=== PATIENT | female | born 1960 | race Caucasian/White ===

== ENCOUNTER 2023-01-10 10:31 | Outpatient (REF) | payer BC, SELFPAY ==
[2023-01-10 12:42] LABS: Erythrocyte Sedimentation Rate 5 MM/HR (0-20)
[2023-01-10 12:51] LABS: Alanine Aminotransferase 25 U/L (0-31); Albumin Level 4.9 g/dL (3.5-5.0); Alkaline Phosphatase 62 U/L (39-117); Anion Gap 14 (12-20); Aspartate Amino Transferase 23 U/L (5-31); Bilirubin Direct 0.2 mg/dL (0.0-0.5); Bilirubin Total 0.5 mg/dL (0.0-1.0); Blood Urea Nitrogen 6 mg/dL (9-16); Carbon Dioxide 23 mmol/L (22-29); Chloride 105 mmol/L (96-108); Estimated Glomerular Filt Rate > 60; Glucose Random 97 mg/dL (60-115); Potassium 3.8 mmol/L (3.3-5.1); Sodium 138 mmol/L (135-145); Total Protein 7.8 g/dL (6.5-8.0)
[2023-01-10 13:15] LABS: HIV AB/AG Nonreactive (Nonreactive); HIV Num 1 0.06 S/CO (0.00-0.99)
[2023-01-10 13:16] LABS: Syphilis Screen Nonreactive (Nonreactive)
[2023-01-12 02:04] LABS: Lyme Abs Screen <0.90 index
[2023-01-12 15:13] LABS: Anti Nuclear Antibody Screen NEGATIVE (NEGATIVE)
[2023-01-14 20:38] LABS: IgA 189 mg/dL (47-310); IgG 1221 mg/dL (600-1640); IgM 81 mg/dL (50-300)
== END 2023-01-10 10:32 | disposition home or self-care (01) ==
LOC: HO.LAB 10:31
PROVIDERS: PCP Internal Medicine; Visit Provider Psychiatry & Neurology Neurology
DX: G93.40 Encephalopathy, unspecified (principal)
CPT/HCPCS: 36415; 80048; 80076; 82784; 85652; 86038; 86334; 86617; 86618; 86780; 87389

== ENCOUNTER 2023-01-21 09:10 | Day surgery (SDC) | payer BC, SELFPAY ==
[2023-01-21] VITALS (7 sets, daily range): BP systolic 102–119; BP diastolic 53–75; PULSE 56–69; RESP 12–16; TEMP 37.3–37.4; O2SAT 95–97
--- NOTE | ~2023-01-21 | FL_ITS ---
PROCEDURE: XR LUMBAR PUNCTURE CLINICAL INFORMATION: Encephalopathy. COMPARISON: None available. TECHNIQUE and FINDINGS: Procedure and risks and benefits including bleeding, infection and headache were discussed with the patient and informed consent was obtained. The patient was positioned in the prone position. The lower back was prepped and draped in the usual sterile fashion. The skin and soft tissues were anesthetized with 1% lidocaine plain. Using fluoroscopic guidance and a 22-gauge spinal needle, left-sided interlaminar access to the spinal canal at the L4-L5 level was obtained. Opening pressure was 14.5 cm of water. 8 mL of clear CSF was removed. FLUOROSCOPY TIME: 20 seconds DOSE AREA PRODUCT: 403 uGy-m2 (microgray-meter squared) TOTAL DOSE: 18.34 mGy SAVED FLUOROSCOPIC IMAGE: 1 FL/FL guided lumbar puncture LP IMPRESSION: Fluoroscopy-guided lumbar puncture.
[2023-01-21 10:05] LABS: MANUAL DIFF FLAG NO
[2023-01-21 10:16] LABS: Basophils Absolute Auto 0.1 X10*3/uL (0.0-0.2); Basophils Percent Auto 1.3 % (0-2); Eosinophils Absolute Auto 0.1 X10*3/uL (0.0-0.4); Eosinophils Percent Auto 1.8 % (0-4); Hematocrit 38.5 % (37.0-47.0); Imm Gran Abs Auto 0.02 X10*3/uL (0.00-0.03); Imm Gran Pct Auto 0.3 % (0.0-0.4); Lymphocytes Percent Auto 38.9 % (20-40); Mean Corpuscular HGB Conc 33.8 g/dl (31.0-35.0); Mean Corpuscular Hemoglobin 31.8 pg (27.0-33.0); Mean Corpuscular Volume 94.1 fL (80.0-98.0); Mean Platelet Volume 9.2 fL (9.4-12.3); Monocytes Absolute Auto 0.8 X10*3/uL (0.1-1.2); Monocytes Percent Auto 9.9 % (2-11); Neutrophils Absolute Auto 3.6 x10*3/uL (2.0-8.3); Neutrophils Percent Auto 47.8 % (45-73); Platelet Count 332 X10*3/uL (160-400); Red Blood Count 4.09 X10*6/uL (4.20-5.50); Red Cell Distribution Width 12.9 % (11.0-16.0); White Blood Count 7.6 X10*3/uL (4.8-10.8)
[2023-01-21 10:25] LABS: INTERNATIONAL NORM RATIO 0.9 (0.9-1.1); Prothrombin Time 10.6 SEC (11.1-13.3)
[2023-01-21 10:28] LABS: Partial Thromboplastin Time 32.9 SEC (26.0-36.4)
[2023-01-21 12:52] LABS: CSF Appearance Xanthochromic; CSF Tube # 1
[2023-01-21 13:18] LABS: Appearance CSF CLEAR; CSF Monos 0 %; CSF Other Cells % 0 %; CSF Tube # 4; Color CSF COLORLESS; Glucose CSF 48 mg/dL; Lymphocytes CSF 100 %; Neutrophils CSF 0 %; Red Blood Cell CSF 0 MM*3; White Blood Cell CSF 3 MM*3
[2023-01-21 14:35] LABS: Total Protein CSF 663.6 mg/dL (15-45)
[2023-01-21 21:32] LABS: Oligoclonal Serum Yes
[2023-01-27 15:29] LABS: Albumin 4.7 g/dL (3.6-5.1); IgG 1170 mg/dL (600-1640); IgG Synthesis Rate 41.9 mg/24 h (-9.9-3.3)
[2023-01-29 21:19] LABS: Oligoclonal Banding Absent (Absent)
== END 2023-01-21 13:46 | disposition home or self-care (01) ==
PROVIDERS: Radiology Diagnostic Radiology; PCP Internal Medicine; Visit Provider Psychiatry & Neurology Neurology
PROC: 009U3ZZ Drainage of Spinal Canal, Percutaneous Approach (ICD-10-PCS; CPT 62270; principal; 2023-01-21 11:00)
DX: G93.40 Encephalopathy, unspecified (principal); G11.9 Hereditary ataxia, unspecified; G62.9 Polyneuropathy, unspecified; M47.812 Spondylosis without myelopathy or radiculopathy, cervical region; F10.11 Alcohol abuse, in remission; K50.90 Crohn's disease, unspecified, without complications; Z79.620 Long term (current) use of immunosuppressive biologic; Z79.899 Other long term (current) drug therapy
CPT/HCPCS: 36415; 62328; 82042; 82945; 83916; 84157; 85025; 85610; 85730; 87015; 87070; 87205; 89051

== ENCOUNTER → 2023-01-21 11:36 | Outpatient (BNV) | payer BC, SELFPAY | PROVIDERS: PCP Internal Medicine; Visit Provider Radiology Diagnostic Radiology | DX: G93.40 Encephalopathy, unspecified (principal) | CPT/HCPCS: 62328 ==

== ENCOUNTER 2023-03-28 07:34 | Outpatient (REF) | payer BC, SELFPAY | END 2023-03-28 07:35 | disposition home or self-care (01) | LOC: HO.MDS 07:34 | PROVIDERS: PCP Internal Medicine; Visit Provider Psychiatry & Neurology Neurology | DX: G61.81 Chronic inflammatory demyelinating polyneuritis (principal) | CPT/HCPCS: 96365; 96366; J1561 ==

== ENCOUNTER 2023-03-29 08:06 | Outpatient (REF) | payer BC, SELFPAY | END 2023-03-29 08:07 | disposition home or self-care (01) | LOC: HO.MDS 08:06 | PROVIDERS: Visit Provider Psychiatry & Neurology Neurology | DX: G61.81 Chronic inflammatory demyelinating polyneuritis (principal) | CPT/HCPCS: 96365; 96366; J1561; J1569 ==

== ENCOUNTER 2023-03-30 07:44 | Outpatient (REF) | payer BC, SELFPAY | END 2023-03-30 07:45 | disposition home or self-care (01) | LOC: HO.MDS 07:44 | PROVIDERS: Visit Provider Psychiatry & Neurology Neurology | DX: G61.81 Chronic inflammatory demyelinating polyneuritis (principal) | CPT/HCPCS: 96365; 96366; J1561 ==

== ENCOUNTER 2023-03-31 07:39 | Outpatient (REF) | payer BC, SELFPAY | END 2023-03-31 07:40 | disposition home or self-care (01) | LOC: HO.MDS 07:39 | PROVIDERS: Visit Provider Psychiatry & Neurology Neurology | DX: G61.81 Chronic inflammatory demyelinating polyneuritis (principal) | CPT/HCPCS: 96365; 96366; J1561 ==

== ENCOUNTER 2023-04-01 07:37 | Outpatient (REF) | payer BC, SELFPAY | END 2023-04-01 07:38 | disposition home or self-care (01) | LOC: HO.MDS 07:37 | PROVIDERS: Visit Provider Psychiatry & Neurology Neurology | DX: G61.81 Chronic inflammatory demyelinating polyneuritis (principal) | CPT/HCPCS: 96365; 96366; J1561 ==

== ENCOUNTER 2023-05-23 08:13 | Outpatient (REF) | payer BC, SELFPAY | END 2023-05-23 08:14 | disposition home or self-care (01) | LOC: HO.MDS 08:13 | PROVIDERS: Visit Provider Psychiatry & Neurology Neurology | DX: G61.81 Chronic inflammatory demyelinating polyneuritis (principal) | CPT/HCPCS: 96365; 96366; J1561 ==

== ENCOUNTER 2023-05-24 07:42 | Outpatient (REF) | payer BC, SELFPAY | END 2023-05-24 07:43 | disposition home or self-care (01) | LOC: HO.MDS 07:42 | PROVIDERS: Visit Provider Psychiatry & Neurology Neurology | DX: G61.81 Chronic inflammatory demyelinating polyneuritis (principal) | CPT/HCPCS: 96365; 96366; J1561 ==

== ENCOUNTER 2023-05-25 07:52 | Outpatient (REF) | payer BC, SELFPAY | END 2023-05-25 07:53 | disposition home or self-care (01) | LOC: HO.MDS 07:52 | PROVIDERS: Visit Provider Psychiatry & Neurology Neurology | DX: G61.81 Chronic inflammatory demyelinating polyneuritis (principal) | CPT/HCPCS: 96365; 96366; J1561 ==

== ENCOUNTER 2023-05-26 07:39 | Outpatient (REF) | payer BC, SELFPAY | END 2023-05-26 07:40 | disposition home or self-care (01) | LOC: HO.MDS 07:39 | PROVIDERS: Visit Provider Psychiatry & Neurology Neurology | DX: G61.81 Chronic inflammatory demyelinating polyneuritis (principal) | CPT/HCPCS: 96365; 96366; J1561 ==

== ENCOUNTER 2023-05-27 07:40 | Outpatient (REF) | payer BC, SELFPAY | END 2023-05-27 07:41 | disposition home or self-care (01) | LOC: HO.MDS 07:40 | PROVIDERS: Visit Provider Psychiatry & Neurology Neurology | DX: G61.81 Chronic inflammatory demyelinating polyneuritis (principal) | CPT/HCPCS: 96365; 96366; J1561 ==

== ENCOUNTER 2024-08-21 07:17 | Outpatient (REF) | payer BC, SELFPAY ==
--- OUTSIDE RECORDS SUMMARY | 2024-08-21 07:20 | XMS_ITS | Referral Summary ---
Author Organization [facility] Address [address] [place] [address] Care Team Providers Care Commercial Stripper Name Role Phone [place] MD, Abel Benavides Primary Care Provider [phone]- [phone] Allergies Active Allergy Reactions Criticality Noted Date Comments Pollen Extracts Nasal congestion Medium 01/17/2017 Medications betamethasone, augmented, (DIPROLENE) 0.05% cream APPLY TOPICALLY TO THE AFFECTED AREA THREE TIMES DAILY NEEDED INSTRUCTED 4 Active ciclopirox (PENLAC) 8 % solution SMARTSIG:Topica l 4 Active hydrocortisone- acetic acid (VOSOL-HC) otic solution SMARTSI Drop(s) In Ear(s) Daily 4 Active predniSONE (DELTASONE) 5 mg tablet SMARTSI Tablet(s) By Mouth Daily 4 Active simvastatin (ZOCOR) 20 mg tablet Take 1 tablet by mouth at bed time. 4 Active tacrolimus (PROTOPIC) 0.03% ointment SMARTSIG:Topica l Twice Daily 4 Active vitamin B complex capsule Take 1 capsule by mouth once a day. Active ascorbic acid (VITAMIN C) 500 mg tablet Take 500 mg by mouth once a day. Active multivitamin (THERAGRAN) tablet Take 1 tablet by mouth once a day. Active cholecalciferol , vitamin D3, (VITAMIN D3 ORAL) Take by mouth. Activ e Active Problems No known active problems Social History Tobacco Use Types Packs/Day Years Used Date Smoking Tobacco: Every Day Cigarettes Passive Smoke Exposure: Current Smokeless Tobacco: Never Tobacco Cessation:Ready to Q uit: Not Asked; Counseling Given: Not Answered Passive Exposure Comments:1 pack per day Alcohol Use Standard Drinks/Week Comments Not Currently 0 (1 standard drink = 0.6 oz pur e alcohol) Sex and Gender Information Value Date Recorded Sex Assigned at Male 07/13/2023 9:13 AM EDT Legal Sex Male 9:11 AM EDT Gender Identity Not on file Sexual Orientation Not on file Last Filed Vital Signs Vital Sign Reading Time Taken Comments Blood Pressure 147/67 11/10/2023 1:10 PM EDT Pulse 82 11/10/2023 1:10 PM EDT Temperature 36.4 ??C (97.5 ??F) 11/10/2023 1:10 PM ED T Respiratory Rate 18 11/10/2023 1:10 PM EDT Oxygen Saturation - - Inhaled Oxygen Concentration - - Weight 82.6 kg (182 lb) 11/10/2023 1:10 PM EDT Height - - Body Mass Index - - Plan of Treatment Not on file Insurance BCBS OUT OF STATE PPO Care Teams Commercial Stripper Relationship Specialty Start Date End Date Abel Callahan III, MD PCP - General Internal Medicine 07/13/23
--- OUTSIDE RECORDS SUMMARY | 2024-08-21 07:20 | XMS_ITS | Clinical Summary ---
Author Organization [facility] Address [address] [place] [address] Care Team Providers Care Scientific Specialist Name Role Phone [place] MD, Abel Benavides Primary Care Provider [phone]- [phone] Allergies Active Allergy Reactions Criticality Noted Date [...] e Active Problems No known active problems Family History Medical History Relation Name Comments Heart disease Father Hyperlipidemia Father Stroke Father Aneurysm Maternal Grandfather Cirrhosis Mother Diabetes type II Mother Relation Name Status Comments Brother Alive Father Maternal Grandfather Maternal Grandmother Mother Paternal Grandfather Paternal Grandmother Social History Tobacco Use Types Packs/Day Years [...] Mass Index - - Plan of Treatment Health Maintenance Due Date Last Done Comments Cologuard 1962 Colon Cancer Screening 1962 Colonoscopy 1962 FOBT / Fit Test 1962 HIV Screening 1962 Hepatitis C Screening 1962 Sigmoidoscopy 1962 Pneumococcal Vaccine: 50+ Years (1 of 2 - PCV) 1981 CT Lung Cancer Screening (Baseline) 02/03/2012 Zoster Vaccines (1 of 2) 02/03/2012 DTaP,Tdap,and Td Vaccines (2 - Td or Tdap) 05/01/2022 05/01/2012 COVID-19 Vaccine ( - season) 2023 03/06/2021, 07/22/2020, 07/01/2020 Alcohol/Substance Use Screening 04/11/2024 Depression Screening and Follow-Up 04/11/2024 Social Drivers of Health Annual Screening 04/11/2024 Influenza Vaccine (Season Ended) 2024 01/29/2023, 01/18/2022, 01/26/2021, Additional history exists RSV Vaccine (60+ years old and patients) (1 - 1-dose 75+ series) 2037 Hepatitis B Vaccines Aged Out No long er eligible based on patient's age to complete this topic Insurance BCBS OUT OF STATE PPO Care Teams Scientific Specialist Relationship Specialty Start Date End Date Abel Callahan III, MD PCP - General Internal Medicine 07/13/23
--- OUTSIDE RECORDS SUMMARY | 2024-08-21 07:20 | XMS_ITS | Clinical Summary ---
Author Organization Patient Business Ser [facility] Address [address] [place] [address] Care Team Providers Care Grape Picker Name Role Phone Abel Callahan MD Primary Care Provider [phone] Allergies No known active allergies Medications ascorbic acid (VITAMIN C) 500 mg chewable tablet Chew 1 tablet (500 mg total). Active cetirizine (ZyrTEC) 10 mg tablet Take 1 tablet (10 mg total) by mouth 1 (one) time each day. 4 Active ciclopirox (LOPROX) 0.77 % gel Apply between 4th and 5th toe left foot once daily x 2 weeks 3 Active docosahexaenoic acid-epa 120-180 mg capsule Take by mouth. Acti ve ergocalciferol (VITAMIN D-2) 1,250 mcg (50,000 unit) capsule Take by mouth. A ctive betamethasone, augmented, (DIPROLENE-AF) 0.05 % cream APPLY TOPICALLY TO THE AFFECTED AREA THREE TIMES DAILY NEEDED INSTRUCTED 4 Active predniSONE (DELTASONE) 20 mg tablet 4 Active betamethasone dipropionate (DIPROSONE) 0.05 % cream APPLY TOPICALLY TO THE AFFECTED AREA THREE TIMES DAILY NEEDED INSTRUCTED 4 Active Banophen 25 mg capsule TAKE 1 CAPSULE BY MOUTH EVERY DAY NEEDED FOR ITCHING 4 Active folic acid (FOLVITE) 1 mg tablet Take 1 tablet (1,000 mcg total) by mouth 1 (one) time each day. 3 Active acetic acid-hydrocortiso ne (VOSOL-HC) otic solution INSTILL 5 DROPS INTO BOTH EARS EVERY DAY DIRECTED 4 Active mesalamine (LIALDA) 1.2 gram EC tablet Take 3 tablets (3.6 g total) by mouth. 4 09/05/19 25 Active oxyCODONE (ROXICODONE) 5 mg immediate release tablet Take 1 tablet (5 mg total) by mouth every 6 (six) hours if needed. for moderate pain 4 Active thiamine 100 mg tablet Take 1 tablet (100 mg total) by mouth 1 (one) time each day. 3 Active tiZANidine (ZANAFLEX) 4 mg tablet Take 1 tablet (4 mg total) by mouth. 4 Active azaTHIOprine (IMURAN) 50 mg tablet Take 1 tablet (50 mg total) by mouth 1 (one) time each day. Active fluticasone propionate (FLONASE) 50 mcg/actuation nasal spray Administer 2 sprays into each nostril 1 (one) time each day. Shake gently. Before first use, prime pump. After use, clean tip and replace cap. 16 g 5 5 04/27/19 26 Active simvastatin (ZOCOR) 20 mg tablet TAKE 1 TABLET(20 MG) BY MOUTH AT BEDTIME 90 tablet 1 5 Active Active Problems Problem Noted Date Diagnosed Date Prediabetes 10/26/2023 Hx of actinic keratosis 05/27/2023 Diabetes mellitus screening 05/27/2023 Tinea pedis, left 01/11/2022 Ruptured tympanic membrane, right 04/28/2021 Overview (05/27/2023): Evaluated by ENT 09/16/20: TM healed and audiometric testing showed resolution of conductive hearing loss. Abnormal MRI, lumbar spine 09/09/2020 Overview (05/27/2023): MRI of the lumbar spine 05/2019: fatty signal intensity within the bone marrow of the sacrum as well as degenerative disc disease. Patient did follow-up with hematology, Dr. Gray on 05-30-19 where reassurance was provided and that appear that the fatty signal was indeed benign and that the back pain undoubtably relates to the multiple disc abnormalities. No further work-up was recommended. Anemia 06/11/2019 Cervical radiculopathy 01/03/2018 Lumbar disc disease with radiculopathy 7 Hypercholesterolemia 05/27/2014 Crohn's colitis ([facility] V24, [facility] V28) 02/10 Overview (05/27/2023): Symptomatic onset approximately April,. Colonoscopy and biopsies 01.19.06. Relative sparing of ascending colon. Terminal ileum normal. biopsies consistent with idiopathic IBD, more likely ulcerative colitis, moderate-severe activity, no dysplasia. CN 02/01/2014: looked like Crohns distal to SF. Biopsies negative for dysplasia, showed ulceration and inflammation. Did not show granulomas. Start [facility] 03/14/2014. Overview: Symptomatic onset approximately April,. Colonoscopy and biopsies 06. Relative sparing of ascending colon. Terminal ileum normal. biopsies consistent with idiopathic IBD, more likely ulcerative colitis, moderate-severe activity, no dysplasia. CN 02/01/2014: looked like Crohns distal to SF. Biopsies negative for dysplasia, showed ulceration and inflammation. Did not show granulomas. Start [facility] 03/14/2014. Encounters Date Type Department Care Team Description 06/25/2024 8:55 AM EDT - 06/25/2024 11:59 PM EDT Hospital Encounter [facility] Xray [address] [place] [id number] Dysphagia, unspecified type Discharge Disposition: Home or Self Care 06/08/2024 12:50 PM EST Office Visit Gastroenterology - [place] [address] [facility] [address] [facility] [address] [place] [phone] Gracy Fowler MD Dysphagia, unspecified type (Primary Dx); Crohn's disease of colon without complication ([facility] V24, [facility] V28) from Last 3 Months Immunizations Name Administration Dates Next Due Influenza Quadravalent, MDCK , 0.5ml, preservative free (Flucelvax) 6mo and older 01/03/2018 Influenza Quadravalent, MDCK , 0.5ml, with preservative (Flucelvax) 6mo and older 01/14/2020 Influenza trivalent, 0.5mL, preservative free (Fluarix; FluLaval; Fluzone) ages 6mo and older (Afluria) 3 years and older 02/07/2017,01/09/2015 Influenza trivalent, with pr eservative (Fluzone; Afluria) 6mo and older 01/14/2020,02/10/2016,02/12/2014 PPD Test 05/04/2016,03/13/2015,02/12/2014 Pfizer SARS-CoV-2 COVID-19, mRNA, LNP-S, preservative free 03/06/2021 Tdap Tetanus diptheria acell ular pertussis (Boostrix; Adacel) 7yo and older 05/01/2012 Surgical History Surgery Date Site/Laterality Comments OTHER SURGICAL HISTORY 1968 PROCEDURE: AR EXPL UNDESCENDED TSTIS INGUN/SCROTAL AREA; COMMENT: age 9 COLONOSCOPY 2013 PROCEDURE: HISTORICAL COLONOSCOPY; COMMENT: IBD distal to SF: chronic IBD on histology. OTHER SURGICAL HISTORY 09/18/2016 PROCEDURE: DISKECTOMY LUMBAR ADDTNL SP; COMMENT: [email or web address]. COLONOSCOPY 04/12/2019 PROCEDURE: HISTORICAL COLONOSCOPY; COMMENT: Surveillance examination for dysplasia; no active disease other than a solitary small erosion. Random biopsies: Normal, no dysplasia. Medical History Medical History Date Comments Broad Top ulcerative (chroni c) colitis(556.6) 02/10/2006 DX:Broad [place] ulcerative (chr onic) colitis(556.6) ([facility]) Actinic keratoses 03/21/2009 DX:Actinic ker atoses Crohn's colitis ([facility] V24 , [facility] V28) 02/10/2006 DX:Crohn's colitis (HCC); CO MMENT: Symptomatic onset approximately April,. Colonoscopy and biopsies 01.19.06. Relative sparing of ascending colon. Terminal ileum normal. biopsies consistent with idiopathic IBD, more likely ulcerative colitis, moderate-severe activity, no dysplasia. CN 02/01/2014: looked like Crohns distal to SF. Encounter for PPD test 02/14/2014 DX:Encoun ter for PPD test; COMMENT: PPD negative, 02/14/2014. Hypercholesteremia 05/27/2014 DX:Hyperchole steremia Lumbar disc disease with radiculopathy 09/17/2016 DX:Lumbar disc disease with radiculopathy History of actinic keratoses 03/21/2009 DX: History of actinic keratoses; COMMENT: Left helix - biopsy 03/19 -- If recurs needs second biopsy Family History Medical History Relation Name Comments Celiac disease Father Heart attack Father Breast cancer Mother Cirrhosis Mother dx with cirrhos is and liver cancer at age 83. Hypertension Mother Colon cancer Neg Hx Crohn's disease Neg Hx Ulcerative colitis Neg Hx Relation Name Status Comments Father (Age 86) Mother (Age 83) 2014 Social History Tobacco Use Types Packs/Day Years Used Date Smoking Tobacco: Every Day Cigarettes 1 42.5 Started: 1982 Smokeless Tobacco: Never Tobacco Cessation:Ready to Q uit: Not Asked; Counseling Given: Not Answered Alcohol Use Standard Drinks/Week Comments Yes 0 (1 standard drink = 0.6 oz pur e alcohol) Sex and Gender Information Value Date Recorded Sex Assigned at Not on file Legal Sex Male 8:29 PM EDT Gender Identity Not on file Sexual Orientation Not on file Obstetrics History Last Filed Vital Signs Vital Sign Reading Time Taken Comments Blood Pressure 125/64 06/08/2024 12:36 PM EST Pulse 87 06/08/2024 12:36 PM EST Temperature 36.6 ??C (97.8 ??F) 04/27/2024 8:03 AM ES T Respiratory Rate 16 04/27/2024 8:03 AM EST Oxygen Saturation 97% 06/08/2024 12:36 PM EST Inhaled Oxygen Concentration - - Weight 89.4 kg (197 lb) 06/08/2024 12:36 PM EST Height 175.3 cm (5' 9 ) 06/08/2024 12:36 PM EST Body Mass Index 29.09 06/08/2024 12:36 PM EST Plan of Treatment Upcoming Encounters Date Type Department Care Team (Late st Contact Info) Description 11/02/2024 9:30 AM EDT Office Visit Adult Medicine [address] [phone] Abel Callahan MD [address] [place] [id number] Health Maintenance Due Date Last Done Comments Hepatitis A Vaccines (1 of 2 - Risk 2-dose series) 1981 Pneumococcal Vaccine: 50+ Years (1 of 2 - PCV) 1981 Pneumococcal Vaccine: Pediatrics (0 to 5 Years) and At-Risk Patients (6 to 64 Years) (1 of 2 - PCV) 1981 Zoster Vaccines (1 of 2) 1981 Depression Screening 08/17/2020 HIV Screening 08/17/2020 Lung Cancer Screening (Low Dose CT) 08/17/2020 Social Influencers of Health Screening 08/17/2020 RSV Immunization Adult Patients (1 - Risk 60-74 years 1-dose series) 2022 DTaP,Tdap,and Td Vaccines (2 - Td or Tdap) 05/01/2022 05/01/2012 COVID-19 Vaccine ( season) 2023 03/06/2021, 07/22/2020, 07/01/2020 Colorectal Cancer Screening: Colonoscopy 08/23/2025 08/24/2023, 04/12/2019 Cholesterol Screening (Lipid Panel) 04/27/2029 04/27/2024, 10/26/2023, 10/26/2023, Additional history exists Hepatitis C Screening Completed 04/01/2016, 016 Influenza Vaccine Completed 03/29/2024, , 01/18/2022, Additional history exists HIB Vaccines Aged Out No longer eligi ble based on patient's age to complete this topic HPV Vaccines Aged Out No longer eligi ble based on patient's age to complete this topic Hepatitis B Vaccines Aged Out No long er eligible based on patient's age to complete this topic IPV Vaccines Aged Out No longer eligi ble based on patient's age to complete this topic MMR Vaccines Aged Out No longer eligi ble based on patient's age to complete this topic Meningococcal ACWY Vaccine Aged Out N o longer eligible based on patient's age to complete this topic Meningococcal B Vaccine Aged Out No l onger eligible based on patient's age to complete this topic RSV Immunization Patients Under 20 months Aged Out No longer eligible based on patient's age to complete this topic Varicella Vaccines Aged Out No longer eligible based on patient's age to complete this topic Procedures Procedure Name Priority Date/Time Associated Diagnosis Comments XR ESOPHAGRAM Routine 06/25/2024 9:28 AM EDT Dysphagia, unspecified type CBC WITH AUTO DIFFERENTIAL Routine 06/08/2024 2:02 PM EST Crohn's disease of colon without complication (CMS/HCC V24, CMS/HCC V28) CBC AND DIFFERENTIAL Routine 06/08/2024 2:02 PM EST Crohn's disease of colon without complication (CMS/HCC V24, CMS/HCC V28) C-REACTIVE PROTEIN Routine 06/08/2024 2: 02 PM EST Crohn's disease of colon without complication (CMS/HCC V24, CMS/HCC V28) LIPID PANEL WITH REFLEX TO DIRECT LDL Routine 04/27/2024 8:47 AM EST Hypercholesterolemia HM COLONOSCOPY Routine 08/24/2023 HEPATITIS C SCREENING Routine 04/01/2016 from Last 3 Months or Most Recently Relevant to Health Maintenance Results * XR Esophagram (06/25/2024 9:28 AM EDT) Anatomical Region Laterality Modality Head and Neck Radiographic Marisol ging 06/25/2024 10:4 1 AM EDT Impressions 06/25/2024 11:01 AM EDT 1. Flash laryngeal penetration with small amounts of silent aspiration noted on rapid sequence swallowing of thin barium with minimal residual in the vallecula and piriform sinuses. 2. Moderate esophageal dysmotility. 3. Small amounts of spontaneous gastroesophageal reflux visualized. -------- FINAL REPORT -------- Dictated By: Farzana Woods Dictated Date: 06/25/2024 10:41 ET Assigned Physician: Talon Kim Reviewed and Electronically Signed By: Talon Kim Signed Date: 06/25/2024 11:01 ET Workstation ID: [id number] Transcribed By: Self Edit Transcribed Date: 06/25/2024 10:53 ET Resident/PA/RIVETER: Farzana Woods Narrative 06/25/2024 11:01 AM EDT FINDINGS: Double contrast esophagram performed. COMPARISON: No prior esophagram imaging HISTORY: Patient is a 64-year-old male with history of dysphagia. Senior Front End Engineer radiographs: 1 view chest radiograph demonstrates cardiac and mediastinal contours within normal limits. Lungs are clear bilaterally. Costophrenic angles are sharp. There are moderate to severe bony degenerative changes of the thoracolumbar spine. 1 view lateral soft tissue neck demonstrates no prevertebral soft tissue masses. Airway is widely patent. There is surgical fusion hardware noted at the level of C3-5. Nuchal ligament is calcified. Effervescent crystals were administered orally. Thick and thin barium were administered orally under fluoroscopic control. Pharyngoesophagram: Rapid sequence imaging of the hypopharynx during swallowing demonstrates prompt initiation of swallowing. There is normal soft palate elevation. There is flash laryngeal penetration with small amounts of silent aspiration noted. There is minimal residual in the vallecula and in the piriform sinuses. Thoracic esophagus: There is moderate esophageal dysmotility as demonstrated by slow transit of contrast down the esophagus and visualized tertiary contractions. Normal distensibility and mucosal pattern without evidence of ulceration, stricture or mass formation. Hiatal hernia: None Reflux: Small amounts of spontaneous gastroesophageal reflux visualized 13mm Barium pill: Swallowed without difficulty. Prompt passage of pill from the esophagus into the stomach. DAP: 8.37 Gycm^2 Procedure Note Talon Kim MD - 06/25/2024 FINDINGS: Double contrast esophagram performed. COMPARISON: No prior esophagram imaging HISTORY: Patient is a 64-year-old male with history of dysphagia. Senior Front End Engineer radiographs: 1 view chest radiograph demonstrates cardiac andmediastinal contours within normal limits. Lungs are clear bilaterally.Costophrenic angles are sharp. There are moderate to severe bonydegenerative changes of the thoracolumbar spine. 1 view lateral softtissue neck demonstrates no prevertebral soft tissue masses. Airway iswidely patent. There is surgical fusion hardware noted at the level ofC3-5. Nuchal ligament is calcified. Effervescent crystals were administered orally. Thick and thin barium wereadministered orally under fluoroscopic control. Pharyngoesophagram: Rapid sequence imaging of the hypopharynx duringswallowing demonstrates prompt initiation of swallowing. There is normalsoft palate elevation. There is flash laryngeal penetration with smallamounts of silent aspiration noted. There is minimal residual in thevallecula and in the piriform sinuses. Thoracic esophagus: There is moderate esophageal dysmotility asdemonstrated by slow transit of contrast down the esophagus and visualizedtertiary contractions. Normal distensibility and mucosal pattern withoutevidence of ulceration, stricture or mass formation. Hiatal hernia: None Reflux: Small amounts of spontaneous gastroesophageal reflux visualized 13mm Barium pill: Swallowed without difficulty. Prompt passage of pillfrom the esophagus into the stomach. DAP: 8.37 Gycm^2 IMPRESSION: 1. Flash laryngeal penetration with small amounts of silent aspirationnoted on rapid sequence swallowing of thin barium with minimal residual inthe vallecula and piriform sinuses. 2. Moderate esophageal dysmotility. 3. Small amounts of spontaneous gastroesophageal reflux visualized. -------- FINAL REPORT -------- Dictated By: Farzana Woods Dictated Date: 06/25/2024 10:41 ET Assigned Physician: Talon Kim Reviewed and Electronically Signed By: Talon Kim Signed Date: 06/25/2024 11:01 ET Workstation ID: [id number] Transcribed By: Self Edit Transcribed Date: 06/25/2024 10:53 ET Resident/PA/RIVETER: Farzana Woods Gracy Fowler MD IMG FLUOROSCOPY PROCEDURES Final Result * (ABNORMAL) CBC auto differential (06/08/2024 2:02 PM EST) WBC 7.9 4.8 - 10.8 K/[facility] LAB HEMETOLOGY METHOD 06/08/2024 2:53 PM EST [facility] RBC 4.20(L) 4.50 - 5.50 M/[facility] LAB HEMETOLOGY METHOD 06/08/2024 2:53 PM EST [facility] Hemoglobin 12.9(L) 13.5 - 17.5 g/dL LAB HEMETOLOGY METHOD 06/08/2024 2:53 PM [facility] Hematocrit 37.9(L) 42.0 - 54.0 % LAB HEMETOLOGY METHOD 06/08/2024 2:53 PM [facility] MCV 90.9 79.0 - 98.0 FL LAB HEMETOLOGY METHOD 06/08/2024 2:53 PM [facility] MCH 30.9 27.0 - 32.0 pcg LAB HEMETOLOGY METHOD 06/08/2024 2:53 PM [facility] MCHC 34.0 32.0 - 37.0 g/dL LAB HEMETOLOGY METHOD 06/08/2024 2:53 PM [facility] RDW 14.0 11.0 - 15.0 % LAB HEMETOLOGY METHOD 06/08/2024 2:53 PM [facility] Platelets 383 130 - 400 K/mcL LAB HEMETOLOGY METHOD 06/08/2024 2:53 PM [facility] MPV 9.9 7.0 - 11.0 FL LAB HEMETOLOGY METHOD 06/08/2024 2:53 PM [facility] NRBC 0.0 <1.0 % LAB HEMETOLOGY METHOD 06/08/2024 2:53 PM [facility] NRBC Absolute 0.00 <0.10 K/mcL LAB HEMETOLOGY METHOD 06/08/2024 2:53 PM [facility] Neutrophils Relative 52.6 % LAB HEMETOLOGY METHOD 06/08/2024 2:53 PM [facility] Lymphocytes Relative 30.2 % LAB HEMETOLOGY METHOD 06/08/2024 2:53 PM [facility] Monocytes Relative 11.7 % LAB HEMETOLOGY METHOD 06/08/2024 2:53 PM [facility] Eosinophils Relative 3.7 % LAB HEMETOLOGY METHOD 06/08/2024 2:53 PM EST [facility] Basophils Relative 1.5 % LAB HEMETOLOGY METHOD 06/08/2024 2:53 PM [facility] Immature Granulocytes Relative 0.3 % LAB HEMETOLOGY METHOD 06/08/2024 2:53 PM EST [facility] Neutrophils Absolute 4.14 1.50 - 7.00 K/mcL LAB HEMETOLOGY METHOD 06/08/2024 2:53 PM EST [facility] Lymphocytes Absolute 2.38 1.00 - 5.00 K/mcL LAB HEMETOLOGY METHOD 06/08/2024 2:53 PM [facility] Monocytes Absolute 0.92 0.20 - 1.00 K/mcL LAB HEMETOLOGY METHOD 06/08/2024 2:53 PM EST [facility] Eosinophils Absolute 0.29 0.00 - 0.50 K/mcL LAB HEMETOLOGY METHOD 06/08/2024 2:53 PM EST [facility] Basophils Absolute 0.12 0.00 - 0.20 K/mcL LAB HEMETOLOGY METHOD 06/08/2024 2:53 PM EST [facility] Immature Granulocytes Absolute 0.02 0.00 - 0.03 K/mcL LAB HEMETOLOGY METHOD 06/08/2024 2:53 PM EST [facility] Blood Venous blood specimen / Unknown Venipuncture / Unknown 06/08/2024 2:02 PM EST 06/08/2024 2:33 PM EST us Gracy Fowler MD LAB BLOOD ORDERABLES Final Result [facility] [address] [place] [address], * C-reactive protein (06/08/2024 2:02 PM EST) [facility] C-Reactive Protein <0.29 <=0.50 mg/dL LAB CHEMISTRY METHOD 06/08/2024 4:09 PM EST [facility] Blood Venous blood specimen / Unknown Venipuncture / Unknown 06/08/2024 2:02 PM EST 06/08/2024 2:33 PM EST us Gracy Fowler MD LAB BLOOD ORDERABLES Final Result [facility] [address] [place] [address], [place] [phone] * (ABNORMAL) Lipid panel with reflex to direct LDL (04/27/2024 8:47 AM EST) [facility] Cholesterol 192 0 - 200 mg/dL LAB CHEMISTRY METHOD 04/27/2024 1:59 PM [facility] Triglycerides 235(H) 0 - 150 mg/dL LAB CHEMISTRY METHOD 04/27/2024 1:59 PM [facility] HDL 38(L) >=40 mg/dL LAB CHEMISTRY METHOD 04/27/2024 1:59 PM [facility] LDL Calculated 107(H) 0 - 100 mg/dL LAB CHEMISTRY METHOD 04/27/2024 1:59 PM [facility] VLDL Cholesterol Chapo 47 mg/dL LAB CHEMISTRY METHOD 04/27/2024 1:59 PM [facility] Non HDL Chol. (LDL+VLDL) 154(H) <145 mg/dL LAB CHEMISTRY METHOD 04/27/2024 1:59 PM [facility] Chol/HDL Ratio 5.1(H) 0.0 - 4.4 LAB CHEMISTRY METHOD 04/27/2024 1:59 PM [facility] Blood Venous blood specimen / Unknown Venipuncture / Unknown 04/27/2024 8:47 AM EST 04/27/2024 8:47 AM EST Abel Callahan MD LAB BLOOD ORDERABLES Final Resu lt [facility] [address] [place] [address], * Colonoscopy (08/24/2023) Colonoscopy no interpretation , abstracted Anatomical Region Laterality Modality Other Historical Provider HEALTH MAINTENANCE Final Result * Hepatitis C Screening (04/01/2016) Hepatitis C Screening ABSTRACTED Historical Provider HEALTH MAINTENANCE Final Result from Last 3 Months or Most Recently Relevant to Health Maintenance Insurance [facility] Care Teams Grape Picker Relationship Specialty Start Date End Date Abel Callahan MD [address] [place] [phone] PCP - General 08/11/05
--- OUTSIDE RECORDS SUMMARY | 2024-08-21 07:20 | XMS_ITS ---
Author Name [facility] Organization Unknown Results Test Name/Text Value Interpretation Date Range Source ICD-10 CODES Normal [facility] LAB AP CLINICAL INFORMATION Small round pink/erythematous patches and papules with fine scale scattered on trunk and proximal extremities; dermatitis unspecified vs lichenoid drug eruption vs hypersensitivity vs AD vs ACD vs psoriasis Normal [facility] AP GROSS DESCRIPTION Received in formalin. Dimensions 5 x 4 x 7 mm, bisected, and submitted in 1 cassette. Also received is a vial of tissue transport medium (Patel's) containing a biopsy specimen measuring 5 x 4 x 6 mm. Tissue was washed in phosphate buffered saline and then embedded in OCT for immunofluorescent studies. Tissue was frozen, cut at 5 microns, and stained with fluorescein-labeled antibody to human IgG, IgM, IgA, C3 and fibrinogen. Normal [id number] [facility]
--- OUTSIDE RECORDS SUMMARY | 2024-08-21 07:20 | XMS_ITS | Clinical Summary ---
Author Organization [facility] Address [address] [place] [address] Care Team Providers Care Voice Systems Engineer Name Role Phone Abel Callahan MD Primary Care Provider [phone] Allergies No known active allergies Medications Medication Sig Dispensed Refills Start Date End Date Status Adalimumab (HUMIRA) 40 MG/0.8ML injection Inject 40 mg under the skin every 7 days. 0 Active vitamin C (ASCORBIC ACID) 500 MG tablet Take 500 mg by mouth daily. 0 Active Multiple Vitamin (MULTI-VITAMIN DAILY PO) Take by mouth every other day. 0 Active [place]-3 Fatty Acids (FISH OIL) 1000 MG CAPS Take by mouth. 0 Active simvastatin (ZOCOR) tablet 20 mg Take 20 mg by mouth every night at bedtime. 0 Active Active Problems Problem Noted Date Diagnosed Date Cervical radiculopathy 01/03/2018 Lumbar disc disease with radiculopathy 7 Hypercholesteremia 05/27/2014 Crohn's colitis 02/10/2006 Overview: Overview: Symptomatic onset approximately April,. Colonoscopy and biopsies 01.19.06. Relative sparing of ascending colon. Terminal ileum normal. biopsies consistent with idiopathic IBD, more likely ulcerative colitis, moderate-severe activity, no dysplasia. CN 02/01/2014: looked like Crohns distal to SF. Biopsies negative for dysplasia, showed ulceration and inflammation. Did not show granulomas. Start humira 03/14/2014. Family History Medical History Relation Name Comments Hypertension Father Stroke Father Cancer Mother Hypertension Mother Relation Name Status Comments Father Mother Social History Tobacco Use Types Packs/Day Years Used Date Smoking Tobacco: Every Day Cigarettes 1 38 Started: 1981 Smokeless Tobacco: Never Tobacco Cessation:Counseling Given: No Alcohol Use Standard Drinks/Week Comments Yes 12 (1 standard drink = 0.6 oz pu re alcohol) beer Sex and Gender Information Value Date Recorded Sex Assigned at Not on file Gender Identity Not on file Sexual Orientation Not on file Job Start Date Occupation Industry Not on file Not on file Not on file Last Filed Vital Signs Vital Sign Reading Time Taken Comments Blood Pressure 122/78 05/29/2019 1:12 PM EST Pulse 93 05/29/2019 1:12 PM EST Temperature 36.2 ??C (97.2 ??F) 05/29/2019 1:12 PM ES T Respiratory Rate - - Oxygen Saturation - - Inhaled Oxygen Concentration - - Weight 86.6 kg (191 lb) 05/29/2019 1:12 PM EST Height 175.3 cm (5' 9 ) 05/29/2019 1:12 PM EST Body Mass Index 28.21 05/29/2019 1:12 PM EST Plan of Treatment Health Maintenance Due Date Last Done Comments Hepatitis C Screening 1960 Lung Cancer Screening (Low Dose CT) 1962 COVID-19 Vaccine (#1) 1962 Pneumococcal Vaccine (1 of 2 - PCV) 02/03/1968 Depression Screening 1974 Preventative Health Evaluation 02/03/1980 Colon Cancer Screening (Colonoscopy) 2007 Shingrix-Zoster Vaccine (1 o f 2) 02/03/2012 DTap / Tdap / Td (2 - Td or Tdap) 05/01/2022 05/01/2012 Influenza Vaccine (#1) 2023 8, 02/10/2016, 02/12/2014 RSV Adult > 60+ Yrs or (1 - 1-dose 75+ series) 2037 Hepatitis B Vaccines Aged Out No long er eligible based on patient's age to complete this topic RSV Ped < 20 months Aged Out No longe r eligible based on patient's age to complete this topic Care Teams Voice Systems Engineer Relationship Specialty Start Date End Date Abel Callahan MD PCP - General Internal Medicine 03/31/18
[2024-08-21 07:40] LABS: MANUAL DIFF FLAG NO
[2024-08-21 07:57] LABS: Basophils Absolute Auto 0.1 X10*3/uL (0.0-0.2); Basophils Percent Auto 1.1 % (0-2); Eosinophils Absolute Auto 0.2 X10*3/uL (0.0-0.4); Eosinophils Percent Auto 3.2 % (0-4); Hematocrit 38.4 % (37.0-47.0); Hemoglobin 13.4 g/dl (12.0-16.0); Imm Gran Abs Auto 0.01 X10*3/uL (0.00-0.03); Imm Gran Pct Auto 0.1 % (0.0-0.4); Lymphocytes Absolute Auto 1.6 X10*3/uL (1.2-4.9); Mean Corpuscular HGB Conc 34.9 g/dl (31.0-35.0); Mean Corpuscular Hemoglobin 31.7 pg (27.0-33.0); Mean Corpuscular Volume 90.8 fL (80.0-98.0); Mean Platelet Volume 9.1 fL (9.4-12.3); Monocytes Absolute Auto 0.8 X10*3/uL (0.1-1.2); Monocytes Percent Auto 11.4 % (2-11); Neutrophils Absolute Auto 4.3 x10*3/uL (2.0-8.3); Neutrophils Percent Auto 61.2 % (45-73); Platelet Count 345 X10*3/uL (160-400); Red Blood Count 4.23 X10*6/uL (4.20-5.50); Red Cell Distribution Width 13.7 % (11.0-16.0); White Blood Count 7.1 X10*3/uL (4.8-10.8)
[2024-08-21 08:13] LABS: Alanine Aminotransferase 27 U/L (0-31); Albumin Level 4.5 g/dL (3.5-5.0); Alkaline Phosphatase 79 U/L (39-117); Aspartate Amino Transferase 20 U/L (5-31); Bilirubin Direct 0.1 mg/dL (0.0-0.5); Bilirubin Total 0.3 mg/dL (0.0-1.0); Total Protein 8.1 g/dL (6.5-8.0)
== END 2024-08-21 07:18 | disposition home or self-care (01) ==
LOC: HO.LAB 07:17
PROVIDERS: PCP Internal Medicine; Visit Provider Psychiatry & Neurology Neurology
DX: G61.81 Chronic inflammatory demyelinating polyneuritis (principal)
CPT/HCPCS: 36415; 80076; 85025

== ENCOUNTER 2024-11-26 10:28 | Outpatient (AMB) | payer BC, SELFPAY ==
--- NOTE | 2024-11-26 10:44 | MHC.OFFVIS ---
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 His EMG/NCS revealed signs of severe neuropathy and CSF protein was 665. With diagnosis of CIDP, he was treated with ivIg that started in late Mar 2023. He is walking with a cane. He is still suffering from balance issues. His hips are also hurting. Breathing is ok. Swallowing is ok. Speech is ok. Bladder control is ok. No significant pain. 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 Normal attention. Normal spontaneous speech, fluency, and comprehension. No obvious issues with mood and memory. Affect is appropriate. Cranial Nerves: CN II: Visual morris full to confrontation, visual acuity intact. CN III, IV, : Pupils equal, round, reactive to light and accommodation. Extraocular movements are normal. CN V: Facial sensation is normal. CN VII: Facial movements symmetrical. CN VIII: Hearing intact to bedside conversation is normal. CN IX, X: Palate elevates symmetrically. CN XI: Shoulder shrug and head turn symmetrical. CN XII: Tongue midline without atrophy or fasciculations. Slow and cautious with a cane. Moderately unsteady. Extrapyramidal: Full facial expressions and blinking. No rigidity. Movements are appropriate with no tremor or abnormality. Speech: Normal; no dysarthria or tremor. Assessment & Plan Assessment & Plan (1) CIDP (chronic inflammatory demyelinating polyneuropathy): Comment: LP at [facility] in Jan 2023: OP 14.5cm, WBCs 3, RBCs 0, Pro 663.6, IgG ind: high, OCBs absent Labs at [facility] in 2022: CBC ok, ESR 5, CMP ok, LFTS ok, INR/PT ok, IF ok, Lyme neg, Trep test neg. MRI C spine at [facility] in Dec 2022: C 3/4 and 4/5 mod to severe stenosis but no cord sig abn NCV/EMG LEs in off in Dec 2022: Moderately severe predominately motor somewhat patchy sensory and motor peripheral neuropathy with axonal loss. There is also evidence of right lower lumbar chronic radiculopathy. MRI LS spine at [facility] in October 2022: mod DJD, mod b/l multilevel spondylitic stenosis MRI brain WO at [facility] in October 2022: mod cerebellar atrophy, one R hernandez radiata probably ischemic small lesion. Code(s): G61.81 - Chronic inflammatory demyelinating polyneuritis Category: Medical (2) Cerebellar ataxia: Code(s): G11.9 - Hereditary ataxia, unspecified Category: Medical (3) Multifactorial gait disorder: Code(s): R26.89 - Other abnormalities of gait and mobility Category: Medical Plan Impression: a: CIDP b: Cerebellar degeneration and ataxia c: Crohn's disease, presently stable d: H/O alcohol drinking that might have contributed to cerebellar degeneration Rec: a: Take prednisone 5mg one every other day b: IV Ig 30 g every 3 months Coding Level of Care Code Est Pt Level 5 (24107) Diagnoses CIDP (chronic inflammatory demyelinating polyneuropathy) G61.81 Cerebellar ataxia G11.9 Multifactorial gait disorder R26.89
[2024-11-26 10:54] VITALS: BMI 29.8
--- OUTSIDE RECORDS SUMMARY | 2024-11-26 11:29 | XMS_ITS | Clinical Summary ---
Author Organization [facility] Address [address] [place] [address] Care Team Providers Care Customer Service Receptionist Name Role Phone [place] MD, Abel Benavides Primary Care Provider [phone] Allergies Active Allergy Reactions Criticality Noted Date [...] 82 11/10/2023 1:10 PM EDT Temperature 36.4 C (97.5 F) 11/10/2023 1:10 PM EDT Respiratory Rate 18 11/10/2023 1:10 PM EDT [...] Vaccine ( season) 2023 03/06/2021, 07/22/2020, 07/01/2020 Alcohol/Substance Use Screening 04/11/2024 Depression Screening and Follow-Up 04/11/2024 Social Drivers of Health Annual Screening 04/11/2024 Influenza Vaccine (#1) 2024 , 01/18/2022, 01/26/2021, Additional history exists RSV Vaccine (60+ years old and patients) (1 - 1-dose 75+ series) 2037 Hepatitis B Vaccines Aged Out No long er eligible based on patient's age to complete this topic Insurance BCBS OUT OF STATE PPO Care Teams Customer Service Receptionist Relationship Specialty Start Date End Date Abel Callahan III, MD PCP - General Internal Medicine 07/13/23
--- OUTSIDE RECORDS SUMMARY | 2024-11-26 11:29 | XMS_ITS | Clinical Summary ---
Author Organization [facility] Address [address] [place] [address] Care Team Providers Care Telephone Service Adviser Name Role Phone Abel Callahan MD Primary Care Provider [phone] Allergies No known active allergies Medications Medication Sig Dispensed Refills Start Date End Date Status Adalimumab (HUMIRA) 40 MG/0.8ML injection Inject 40 mg under the skin every 7 days. 0 Active vitamin C (ASCORBIC ACID) 500 MG tablet Take 500 mg by mouth daily. 0 Active Multiple Vitamin (MULTI-VITAMIN DAILY PO) Take by mouth every other day. 0 Active [place]-3 Fatty Acids (FISH OIL) 1000 MG CAPS [...] 93 05/29/2019 1:12 PM EST Temperature 36.2 C (97.2 F) 05/29/2019 1:12 PM EST Respiratory Rate - - Oxygen Saturation - [...] or Tdap) 05/01/2022 05/01/2012 Influenza Vaccine (#1) 2024 8, 02/10/2016, 02/12/2014 RSV Adult > 60+ Yrs or (1 - 1-dose 75+ series) 2037 Hepatitis B Vaccines Aged Out No long er eligible based on patient's age to complete this topic RSV Ped < 20 months Aged Out No longe r eligible based on patient's age to complete this topic Care Teams Telephone Service Adviser Relationship Specialty Start Date End Date Abel Callahan MD PCP - General Internal Medicine 03/31/18
--- OUTSIDE RECORDS SUMMARY | 2024-11-26 11:29 | XMS_ITS ---
Author Name [facility] Organization Unknown Results Test Name/Text Value Interpretation Date Range Source ICD-10 CODES Normal 07/19/2023 [facility] CLINICAL INFORMATION Small round pink/erythematous patches and papules with fine scale scattered on trunk and proximal extremities; dermatitis unspecified vs lichenoid drug eruption vs hypersensitivity vs AD vs ACD vs psoriasis Normal 07/19/2023 [facility] GROSS DESCRIPTION Received [...] IgG, IgM, IgA, C3 and fibrinogen. Normal 07/19/2023 [facility]
--- OUTSIDE RECORDS SUMMARY | 2024-11-26 11:29 | XMS_ITS | Clinical Summary ---
Author Organization Patient Business Ser [facility] Address [address] [place] [address] Care Team Providers Care Spring Former Name Role Phone Abel Callahan MD Primary Care Provider Allergies No known active allergies Medications ascorbic acid (VITAMIN C) 500 mg chewable tablet Chew 1 tablet (500 mg total). Active ciclopirox (LOPROX) 0.77 % gel Apply between 4th and 5th toe left foot once daily x 2 weeks 06/15/19 23 Active docosahexaenoic acid-epa 120-180 mg capsule Take by mouth. Active ergocalciferol (VITAMIN D-2) 1,250 mcg (50,000 unit) capsule Take by mouth. Active betamethasone, augmented, (DIPROLENE-AF) 0.05 % cream APPLY TOPICALLY TO THE AFFECTED AREA THREE TIMES DAILY NEEDED INSTRUCTED 08/17/19 24 Active predniSONE (DELTASONE) 20 mg tablet 04/30/19 24 Active betamethasone dipropionate (DIPROSONE) 0.05 % cream APPLY TOPICALLY TO THE AFFECTED AREA THREE TIMES DAILY NEEDED INSTRUCTED 08/17/19 24 Active Banophen 25 mg capsule TAKE 1 CAPSULE BY MOUTH EVERY DAY NEEDED FOR ITCHING 07/23/19 24 Active folic acid (FOLVITE) 1 mg tablet Take 1 tablet (1,000 mcg total) by mouth 1 (one) time each day. 03/15/20 23 Active acetic acid-hydrocortis one (VOSOL-HC) otic solution INSTILL 5 DROPS INTO BOTH EARS EVERY DAY DIRECTED 02/24/20 24 Active oxyCODONE (ROXICODONE) 5 mg immediate release tablet Take 1 tablet (5 mg total) by mouth every 6 (six) hours if needed. for moderate pain 10/15/19 24 Active thiamine 100 mg tablet Take 1 tablet (100 mg total) by mouth 1 (one) time each day. 03/11/20 23 Active tiZANidine (ZANAFLEX) 4 mg tablet Take 1 tablet (4 mg total) by mouth. 10/15/19 24 Active azaTHIOprine (IMURAN) 50 mg tablet Take 1 tablet (50 mg total) by mouth 1 (one) time each day. Active fluticasone propionate (FLONASE) 50 mcg/actuation nasal spray Administer 2 sprays into each nostril 1 (one) time each day. Shake gently. Before first use, prime pump. After use, clean tip and replace cap. 16 g 5 04/27/19 25 026 Active cetirizine (ZyrTEC) 10 mg tablet TAKE 1 TABLET BY MOUTH EVERY DAY 90 tablet 1 09/21/19 25 Active simvastatin (ZOCOR) 20 mg tablet TAKE 1 TABLET(20 MG) BY MOUTH AT BEDTIME 90 tablet 1 11/13/19 25 Active simvastatin (ZOCOR) 20 mg tablet TAKE 1 TABLET(20 MG) BY MOUTH AT BEDTIME 90 tablet 1 05/21/19 25 025 Discontinued Active Problems Problem Noted Date Diagnosed Date Dysarthria 10/31/2024 Overview (10/31/2024): Follows with neurology, Dr. Michelle Cerebellar ataxia ([facility] V24, [facility] V28) Overview (10/31/2024): Follows with neurology. Uses cane. Peripheral neuropathy 10/31/2024 Overview (10/31/2024): Follows with neurology. Dr. Michelle Prediabetes 10/26/2023 Hx of actinic keratosis 05/27/2023 [...] with radiculopathy 7 Hypercholesterolemia 05/27/2014 Crohn's colitis ([facility] V24, [facility] V28) 02/10 Overview (05/27/2023): Symptomatic onset approximately April,. Colonoscopy and biopsies 10..06. Relative sparing of ascending colon. Terminal ileum normal. biopsies consistent with idiopathic IBD, more likely ulcerative colitis, moderate-severe activity, no dysplasia. CN 02/01/2014: looked like Crohns distal to SF. Biopsies negative for dysplasia, showed ulceration and inflammation. Did not show granulomas. Start [facility] 03/14/2014. Overview: Symptomatic onset approximately April,. Colonoscopy and biopsies 10.11.06. Relative sparing of ascending colon. Terminal ileum normal. biopsies consistent with idiopathic IBD, more likely ulcerative colitis, moderate-severe activity, no dysplasia. CN 02/01/2014: looked like Crohns distal to SF. Biopsies negative for dysplasia, showed ulceration and inflammation. Did not show granulomas. Start [facility] 03/14/2014. Encounters Date Type Department Care Team Description 10/31/2024 10:30 AM EDT Office Visit [address] [address] Gregory, [place], [place] Laceration of left index finger without foreign body, nail damage status unspecified, subsequent encounter (Primary Dx); Dysarthria; Cerebellar ataxia (CMS/HCC V24, CMS/HCC V28); Other polyneuropathy; Pulse irregularity 10/22/2024 Telephone Adult Medicine [id number] [place] [address] Abel Callahan MD Hospital Follow-up from Last 3 Months Immunizations Name Administration [...] ular pertussis (Boostrix; Adacel) 7yo and older 10/19/2024,05/01/2012 Surgical History Surgery Date Site/Laterality Comments OTHER SURGICAL HISTORY 1968 PROCEDURE: LA EXPL UNDESCENDED TSTIS INGUN/SCROTAL AREA; COMMENT: age 9 COLONOSCOPY 2013 PROCEDURE: HISTORICAL COLONOSCOPY; COMMENT: IBD distal to SF: chronic IBD on histology. OTHER SURGICAL HISTORY 09/18/2016 PROCEDURE: DISKECTOMY LUMBAR ADDTNL SP; COM[place]: [email or web address] 04/12/2019 PROCEDURE: HISTORICAL COLONOSCOPY; COMMENT: Surveillance examination for dysplasia; no active disease other than a solitary small erosion. Random biopsies: Normal, no dysplasia. Medical History Medical History Date Comments [place] ulcerative (chroni c) colitis(556.6) 02/10/2006 DX:[place] ulcerative (chr onic) colitis(556.6) ([facility]) Actinic keratoses 03/21/2009 DX:Actinic ker atoses Crohn's colitis (CMS/HCC V24 , CMS/HCC V28) 02/10/2006 DX:Crohn's colitis (HCC); CO MMENT: [...] Date Smoking Tobacco: Every Day Cigarettes 1 42.8 Started: 1982 Smokeless Tobacco: Never Tobacco Cessation:Ready [...] Sign Reading Time Taken Comments Blood Pressure 134/88 10/31/2024 7:59 AM EDT Pulse 61 10/31/2024 7:59 AM EDT Temperature 36.2 C (97.2 F) 10/31/2024 7:59 AM EDT Respiratory Rate 14 10/31/2024 7:59 AM EDT Oxygen Saturation 97% 10/31/2024 7:59 AM EDT Inhaled Oxygen Concentration - - Weight 88.9 kg (196 lb) 10/31/2024 7:59 AM EDT Height 175.3 cm (5' 9 ) 10/31/2024 7:59 AM EDT Body Mass Index 28.94 10/31/2024 7:59 AM EDT Plan of Treatment Upcoming Encounters Date Type Department Care Team (Late st Contact Info) Description 11/29/2024 8:00 AM EDT Ancillary Procedure [facility] [address] [place] [id number] 12/19/2024 1:00 PM EDT Office Visit Adult Medicine [facility] [address] [place] [address] Mario Alberto Holly PA [address] [place] [address] Health Maintenance Due Date Last Done Comments Pneumococcal Vaccine: 50+ Years (1 of 2 - PCV) 1981 Zoster Vaccines (1 of 2) 1981 HIV Screening 08/17/2020 Lung Cancer Screening (Low Dose CT) 08/17/2020 Social Influencers of Health Screening 08/17/2020 RSV Immunization Adult Patients (1 - Risk 60-74 years 1-dose series) 2022 COVID-19 Vaccine ( - season) 2023 03/06/2021, 07/22/2020, 07/01/2020 Depression Screening 04/11/2024 Influenza Vaccine (#1) 2024 , 01/29/2023, 01/18/2022, Additional history exists Colorectal Cancer Screening: Colonoscopy 08/23/2025 08/24/2023, 04/12/2019 Cholesterol Screening (Lipid Panel) 04/27/2029 04/27/2024, 10/26/2023, 10/26/2023, Additional history exists DTaP,Tdap,and Td Vaccines (3 - Td or Tdap) 10/19/2034 10/19/2024, 05/01/2012 Hepatitis C Screening Completed 04/01/2016, 016 HIB Vaccines Aged Out No longer eligi ble based on patient's age to complete this topic HPV Vaccines Aged Out No longer eligi ble based on patient's age to complete this topic Hepatitis A Vaccines Aged Out No long er eligible [...] Procedure Name Priority Date/Time Associated Diagnosis Comments ECG 12-LEAD TRACING ONLY Routine 11/02/2024 8:09 AM EDT Dysarthria Pulse irregularity CBC WITH AUTO DIFFERENTIAL Routine 10/31/2024 9:01 AM EDT Pulse irregularity CBC AND DIFFERENTIAL Routine 10/31/2024 9:01 AM EDT Pulse irregularity COMPREHENSIVE METABOLIC PANEL Routine 10/31/2024 9:01 AM EDT Pulse irregularity MAGNESIUM Routine 10/31/2024 9:01 AM EDT Pulse irregularity THYROID STIMULATING HORMONE WITH REFLEX TO FREE T4 AND FREE T3 Routine 10/31/2024 9:01 AM EDT Pulse irregularity LIPID PANEL WITH REFLEX TO DIRECT LDL Routine 04/27/2024 8:47 AM EST Hypercholesterolemia HM COLONOSCOPY Routine 08/24/2023 HEPATITIS C SCREENING Routine 04/01/2016 from Last 3 Months or Most Recently Relevant to Health Maintenance Results * ECG 12 lead Tracing Only (11/02/2024 8:09 AM EDT) Noemi CLARK ECG ORDERABLES Final Result * Thyroid stimulating hormone with reflex to free t4 and free t3 (10/31/2024 9:01 AM EDT) [facility] TSH 1.46 0.40 - 4.00 mcIU/mL LAB CHEMISTRY METHOD 10/31/2024 2:05 PM EDT [facility] Blood Venous blood specimen / Unknown Venipuncture / Unknown 10/31/2024 9:01 AM EDT 10/31/2024 9:01 AM EDT Noemi CLARK LAB BLOOD ORDERABLES Final Resul t [facility] [address] [place] [address], * (ABNORMAL) CBC auto differential (10/31/2024 9:01 AM EDT) [facility] WBC 10.4 4.8 - 10.8 K/mcL LAB HEMETOLOGY METHOD 10/31/2024 10:19 AM [facility] RBC 4.40(L) 4.50 - 5.50 M/mcL LAB HEMETOLOGY METHOD 10/31/2024 10:19 AM [facility] Hemoglobin 13.6 13.5 - 17.5 g/dL LAB HEMETOLOGY METHOD 10/31/2024 10:19 AM EDT [facility] Hematocrit 41.6(L) 42.0 - 54.0 % LAB HEMETOLOGY METHOD 10/31/2024 10:19 AM EDT [facility] MCV 93.9 79.0 - 98.0 FL LAB HEMETOLOGY METHOD 10/31/2024 10:19 AM [facility] MCH 30.7 27.0 - 32.0 pcg LAB HEMETOLOGY METHOD 10/31/2024 10:19 AM [facility] MCHC 32.7 32.0 - 37.0 g/dL LAB HEMETOLOGY METHOD 10/31/2024 10:19 AM [facility] RDW 14.0 11.0 - 15.0 % LAB HEMETOLOGY METHOD 10/31/2024 10:19 AM [facility] Platelets 393 130 - 400 K/mcL LAB HEMETOLOGY METHOD 10/31/2024 10:19 AM [facility] MPV 9.6 7.0 - 11.0 FL LAB HEMETOLOGY METHOD 10/31/2024 10:19 AM [facility] NRBC 0.0 <1.0 % LAB HEMETOLOGY METHOD 10/31/2024 10:19 AM [facility] NRBC Absolute 0.00 <0.10 K/mcL LAB HEMETOLOGY METHOD 10/31/2024 10:19 AM [facility] Neutrophils Relative 77.2 % LAB HEMETOLOGY METHOD 10/31/2024 10:19 AM [facility] Lymphocytes Relative 12.6 % LAB HEMETOLOGY METHOD 10/31/2024 10:19 AM [facility] Monocytes Relative 7.5 % LAB HEMETOLOGY METHOD 10/31/2024 10:19 AM [facility] Eosinophils Relative 1.2 % LAB HEMETOLOGY METHOD 10/31/2024 10:19 AM [facility] Basophils Relative 1.1 % LAB HEMETOLOGY METHOD 10/31/2024 10:19 AM [facility] Immature Granulocytes Relative 0.4 % LAB HEMETOLOGY METHOD 10/31/2024 10:19 AM [facility] Neutrophils Absolute 8.03(H) 1.50 - 7.00 K/mcL LAB HEMETOLOGY METHOD 10/31/2024 10:19 AM EDT [facility] Lymphocytes Absolute 1.31 1.00 - 5.00 K/mcL LAB HEMETOLOGY METHOD 10/31/2024 10:19 AM EDT [facility] Monocytes Absolute 0.78 0.20 - 1.00 K/mcL LAB HEMETOLOGY METHOD 10/31/2024 10:19 AM EDT [facility] Eosinophils Absolute 0.12 0.00 - 0.50 [facility] LAB HEMETOLOGY METHOD 10/31/2024 10:19 AM EDT [facility] Basophils Absolute 0.11 0.00 - 0.20 K/mcL LAB HEMETOLOGY METHOD 10/31/2024 10:19 AM EDT [facility] Immature Granulocytes Absolute 0.04(H) 0.00 - 0.03 K/mcL LAB HEMETOLOGY METHOD 10/31/2024 10:19 AM EDT [facility] Blood Venous blood specimen / Unknown Venipuncture / Unknown 10/31/2024 9:01 AM EDT 10/31/2024 9:01 AM EDT Noemi CLARK LAB BLOOD ORDERABLES Final Resul t [facility] [address] [place] [address], * Magnesium (10/31/2024 9:01 AM EDT) Magnesium 2.4 1.9 - 2.6 mg/dL LAB CHEMISTRY METHOD 10/31/2024 1:00 PM EDT [facility] Blood Venous blood specimen / Unknown Venipuncture / Unknown 10/31/2024 9:01 AM EDT 10/31/2024 9:01 AM EDT us Noemi CLARK LAB BLOOD ORDERABLES Final Resul t [facility] [address] [place] [address], * Comprehensive metabolic panel (10/31/2024 9:01 AM EDT) Sodium 135 133 - 145 mmol/L LAB CHEMISTRY METHOD 10/31/2024 1:12 PM [facility] Potassium 4.6 3.5 - 5.5 mmol/L LAB CHEMISTRY METHOD 10/31/2024 1:12 PM [facility] Chloride 103 96 - 110 mmol/L LAB CHEMISTRY METHOD 10/31/2024 1:12 PM [facility] CO2 28 21 - 32 mmol/L LAB CHEMISTRY METHOD 10/31/2024 1:12 PM [facility] Anion Gap 4 3 - 11 LAB CHEMISTRY METHOD 10/31/2024 1:12 PM [facility] Glucose 86 70 - 100 mg/dL LAB CHEMISTRY METHOD 10/31/2024 1:12 PM [facility] BUN 9 5 - 25 mg/dL LAB CHEMISTRY METHOD 10/31/2024 1:12 PM [facility] Creatinine 0.90 0.70 - 1.30 mg/dL LAB CHEMISTRY METHOD 10/31/2024 1:12 PM [facility] eGFR 97 >=60 mL/min/1. 73m2 LAB CHEMISTRY METHOD 10/31/2024 1:12 PM [facility] Comment:Calculation based on the Chronic Kidney Disease Epidemiology Collaboration (CKD-EPI) equation refit without adjustment for race. BUN/Creatinine Ratio 10.0 LAB CHEMISTRY METHOD 10/31/2024 1:12 PM [facility] Calcium 9.5 8.5 - 10.5 mg/dL LAB CHEMISTRY METHOD 10/31/2024 1:12 PM [facility] AST (SGOT) 27 10 - 42 unit/L LAB CHEMISTRY METHOD 10/31/2024 1:12 PM EDT [facility] ALT (SGPT) 31 10 - 60 unit/L LAB CHEMISTRY METHOD 10/31/2024 1:12 PM EDT [facility] Alkaline Phosphatase 87 42 - 121 unit/L LAB CHEMISTRY METHOD 10/31/2024 1:12 PM EDT [facility] Total Protein 7.7 6.0 - 8.0 g/dL LAB CHEMISTRY METHOD 10/31/2024 1:12 PM EDT [facility] Albumin 4.5 3.2 - 5.0 g/dL LAB CHEMISTRY METHOD 10/31/2024 1:12 PM EDT [facility] Total Bilirubin 0.3 0.0 - 1.4 mg/dL LAB CHEMISTRY METHOD 10/31/2024 1:12 PM EDT [facility] Blood Venous blood specimen / Unknown Venipuncture / Unknown 10/31/2024 9:01 AM EDT 10/31/2024 9:01 AM EDT Noemi CLARK LAB BLOOD ORDERABLES Final Resul t [facility] [address] [place] [address], * (ABNORMAL) Lipid panel with reflex to direct LDL (04/27/2024 8:47 AM EST) Cholesterol 192 0 - 200 mg/dL LAB CHEMISTRY METHOD 04/27/2024 1:59 PM EST [facility] Triglycerides 235(H) 0 - 150 mg/dL LAB CHEMISTRY METHOD 04/27/2024 1:59 PM EST [facility] HDL 38(L) >=40 mg/dL LAB CHEMISTRY METHOD 04/27/2024 1:59 PM EST [facility] LDL Calculated 107(H) 0 - 100 mg/dL LAB CHEMISTRY METHOD 04/27/2024 1:59 PM EST [facility] VLDL Cholesterol Chapo 47 mg/dL LAB CHEMISTRY METHOD 04/27/2024 1:59 PM EST [facility] Non HDL Chol. (LDL+VLDL) 154(H) <145 mg/dL LAB CHEMISTRY METHOD 04/27/2024 1:59 PM EST [facility] Chol/HDL Ratio 5.1(H) 0.0 - 4.4 LAB CHEMISTRY METHOD 04/27/2024 1:59 PM EST [facility] Blood Venous blood specimen / Unknown Venipuncture / Unknown 04/27/2024 8:47 AM EST 04/27/2024 8:47 AM EST Abel Callahan MD LAB BLOOD ORDERABLES Final Resu lt [facility] [address] [place] [address], * Colonoscopy (08/24/2023) Colonoscopy no interpretation , abstracted Anatomical Region Laterality Modality Other Historical Provider HEALTH MAINTENANCE Final Result * Hepatitis C Screening (04/01/2016) Hepatitis C Screening ABSTRACTED Historical Provider HEALTH MAINTENANCE Final Result from Last 3 Months or Most Recently Relevant to Health Maintenance Insurance [id number] Care Teams Spring Former Relationship Specialty Start Date End Date Abel Callahan MD [address] [place] [id number] PCP - General 08/11/05
== END 2024-11-26 10:59 | disposition home or self-care (01) ==
LOC: HO.HSM 10:28
PROVIDERS: PCP Internal Medicine; Visit Provider Psychiatry & Neurology Neurology
DX: G61.81 Chronic inflammatory demyelinating polyneuritis (principal); G11.9 Hereditary ataxia, unspecified
CPT/HCPCS: 99214

== ENCOUNTER 2025-02-18 09:51 | Outpatient (AMB) | payer BC, SELFPAY ==
--- NOTE | 2025-02-18 09:53 | MHC.OFFVIS ---
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 His EMG/NCS revealed signs of severe neuropathy and CSF protein was 665. Part of the reason for high CSF protein might have been cervical stenosis. With diagnosis of CIDP, he was treated with ivIg that started in late Mar 2023. He was doing okay but now and then was falling. He has started to use a cane. Fall would happened usually from an accident or losing balance. He has been using either walker or a cane. No breathing difficulty or swallowing difficulty. Bowel bladder function was okay. No significant pain. Currently, her medications include azathioprine at 50 mg, folic acid at 1 mg daily, and a pending adjustment in prednisone dosing to a consistent 2.5 mg daily. She receives IVIG infusions every three months and has just completed a session. Her chronic colon disease remains stable, potentially due to medication effects. There is a history of neck surgery in 2013, and current hand tremors are noted, possibly linked to a past history of alcohol consumption. 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 Normal attention. Normal spontaneous speech, fluency, and comprehension. Cranial Nerves: CN II: Visual morris full to confrontation, visual acuity intact. CN III, IV, : Pupils equal, round, reactive to light and accommodation. Extraocular movements are normal. CN V: Facial sensation is normal. CN VII: Facial movements symmetrical. CN VIII: Hearing intact to bedside conversation is normal. CN IX, X: Palate elevates symmetrically. CN XI: Shoulder shrug and head turn symmetrical. CN XII: Tongue midline without atrophy or fasciculations. He is walking in a broad-based slow and cautious gait with mild unsteadiness using a cane. Extrapyramidal: Full facial expressions and blinking. No rigidity. Movements are appropriate with no tremor or abnormality. Speech: Normal; no dysarthria or tremor. Assessment & Plan Assessment & Plan (1) CIDP (chronic inflammatory demyelinating polyneuropathy): Comment: [place] [facility] [place]: OP 14.5cm, WBCs 3, RBCs 0, Pro 663.6, IgG ind: high, OCBs absent Labs [place] [facility] [place]: CBC ok, ESR 5, CMP ok, LFTS ok, INR/PT ok, IF ok, Lyme neg, Trep test neg. MRI C spine at [facility] in Dec 2022: C 3/4 and 4/5 mod to severe stenosis but no cord sig abn NCV/EMG LEs in off in Dec 2022: Moderately severe predominately motor somewhat patchy sensory and motor peripheral neuropathy with axonal loss. There is also evidence of right lower lumbar chronic radiculopathy. MRI LS spine at [facility] in October 2022: mod DJD, mod b/l multilevel spondylitic stenosis MRI brain WO at [facility] in October 2022: mod cerebellar atrophy, one R hernandez radiata probably ischemic small lesion. 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
--- OUTSIDE RECORDS SUMMARY | 2025-02-18 11:15 | XMS_ITS | Clinical Summary ---
Author Organization [facility] Address [address] [place] [address] Care Team Providers Care National Sales Executive Name Role Phone [place] MD, Abel Benavides Primary Care Provider [phone] Allergies Active Allergy Reactions Criticality Noted Date [...] (2 - Td or Tdap) 05/01/2022 05/01/2012 Alcohol/Substance Use Screening 04/11/2024 Depression Screening and Follow-Up 04/11/2024 Social Drivers of Health Annual Screening 04/11/2024 COVID-19 Vaccine (4 - season) 2024 03/06/2021, 07/22/2020, 07/01/2020 Influenza Vaccine (#1) 2024 , 01/18/2022, 01/26/2021, Additional history exists RSV Vaccine (60+ years old and patients) (1 - 1-dose 75+ series) 2037 Hepatitis B Vaccines Aged Out No long er eligible based on patient's age to complete this topic Insurance BCBS OUT OF STATE PPO Care Teams National Sales Executive Relationship Specialty Start Date End Date Abel Callahan III, MD PCP - General Internal Medicine 07/13/23
--- OUTSIDE RECORDS SUMMARY | 2025-02-18 11:15 | XMS_ITS | Clinical Summary ---
Author Organization [facility] Address [address] [place] [address] Care Team Providers Care Mechanism Assembler Name Role Phone Abel Callahan MD Primary Care Provider [phone] Allergies No known active allergies Medications Medication Sig Dispensed Refills Start Date End Date Status Adalimumab (HUMIRA) 40 MG/0.8ML injection Inject 40 mg under the skin every 7 days. 0 Active vitamin C (ASCORBIC ACID) 500 MG tablet Take 500 mg by mouth daily. 0 Active Multiple Vitamin (MULTI-VITAMIN DAILY PO) Take by mouth every other day. 0 Active King-3 Fatty Acids (FISH OIL) 1000 MG CAPS [...] age to complete this topic Care Teams Mechanism Assembler Relationship Specialty Start Date End Date Abel Callahan MD PCP - General Internal Medicine 03/31/18
--- OUTSIDE RECORDS SUMMARY | 2025-02-18 11:15 | XMS_ITS | Clinical Summary ---
Author Organization Patient Business Ser [facility] Address [address] [place] [address] Care Team Providers Care Transverse Abdominal Muscle Nurse Name Role Phone Abel Callahan MD Primary Care Provider [phone] Allergies No known active allergies Medications ascorbic [...] THREE TIMES DAILY NEEDED INSTRUCTED 4 Active folic acid (FOLVITE) 1 mg tablet Take 1 tablet (1,000 mcg total) by mouth 1 (one) time each day. 3 Active acetic acid-hydrocortiso ne (VOSOL-HC) otic solution INSTILL 5 DROPS INTO BOTH EARS EVERY DAY DIRECTED 4 Active thiamine 100 mg tablet Take 1 tablet (100 mg total) by mouth 1 (one) time each day. 3 Active azaTHIOprine (IMURAN) 50 mg tablet Take 1 tablet (50 mg total) by mouth 1 (one) time each day. Active simvastatin (ZOCOR) 20 mg tablet TAKE 1 TABLET(20 MG) BY MOUTH AT BEDTIME 90 tablet 1 5 Active cetirizine (ZyrTEC) 10 mg tablet Take 1 tablet (10 mg total) by mouth 1 (one) time each day. 90 tablet 1 5 Active fluticasone propionate (FLONASE) 50 mcg/actuation nasal spray Administer 2 sprays into each nostril 1 (one) time each day. Shake gently. Before first use, prime pump. After use, clean tip and replace cap. 16 g 5 5 12/20/19 26 Active Active Problems Problem Noted Date Diagnosed Date Dysarthria 10/31/2024 Overview (10/31/2024): Follows with neurology, Dr. Michelle Cerebellar ataxia ([facility] V24, [facility] V28) Overview (10/31/2024): Follows with neurology. Uses [...] with radiculopathy 7 Hypercholesterolemia 05/27/2014 Crohn's colitis ([facility] V24, [facility] V28) 02/10 Overview (05/27/2023): Symptomatic onset approximately April,. Colonoscopy and biopsies 01.19.06. Relative sparing of ascending colon. Terminal ileum normal. biopsies consistent with idiopathic IBD, more likely ulcerative colitis, moderate-severe activity, no dysplasia. CN 02/01/2014: looked like Crohns distal to SF. Biopsies negative for dysplasia, showed ulceration and inflammation. Did not show granulomas. Start [facility] 03/14/2014. Overview: Symptomatic onset approximately April,. Colonoscopy and biopsies 06. Relative sparing of ascending colon. Terminal ileum normal. biopsies consistent with idiopathic IBD, more likely ulcerative colitis, moderate-severe activity, no dysplasia. CN 02/01/2014: looked like Crohns distal to SF. Biopsies negative for dysplasia, showed ulceration and inflammation. Did not show granulomas. Start [facility] 03/14/2014. Encounters Date Type Department Care Team Description 12/24/2024 8:19 AM EDT - 12/24/2024 11:59 PM EDT Hospital Encounter [address] [phone] Chronic pain of both knees Discharge Disposition: Home or Self Care 12/19/2024 1:00 PM EDT Office Visit Adult Medicine [address] [phone] Mario Alberto Holly PA Prediabetes (Primary Dx); Hypercholesterolemia; Rash; Chronic pain of both knees; Cervical radiculopathy; Lumbar disc disease with radiculopathy 11/29/2024 8:00 AM EDT Ancillary Procedure [facility] [address] [place] [address] Pulse irregularity from Last 3 Months Immunizations Immunization Administration Dates Next Due Influenza Quadravalent, MDCK [...] Surgery Date Site/Laterality Comments OTHER SURGICAL HISTORY 1969 PROCEDURE: AR EXPL UNDESCENDED TSTIS INGUN/SCROTAL AREA; COMMENT: age 9 COLONOSCOPY 2013 PROCEDURE: HISTORICAL COLONOSCOPY; COMMENT: IBD distal to SF: chronic IBD on histology. OTHER SURGICAL HISTORY 09/18/2016 PROCEDURE: DISKECTOMY LUMBAR ADDTNL SP; COMMENT: [email or web address]. COLONOSCOPY 04/12/2019 PROCEDURE: HISTORICAL COLONOSCOPY; COMMENT: Surveillance examination for dysplasia; no active disease other than a solitary small erosion. Random biopsies: Normal, no dysplasia. Medical History Medical History Date Comments [place] ulcerative (chroni c) colitis(556.6) 02/10/2006 DX:[place] ulcerative (chr onic) colitis(556.6) (HCC) Actinic keratoses 03/21/2009 DX:Actinic ker atoses Crohn's [...] Date Smoking Tobacco: Every Day Cigarettes 1 43 Started: 1982 Smokeless Tobacco: Never Tobacco Cessation:Ready [...] Sign Reading Time Taken Comments Blood Pressure 118/64 12/19/2024 1:28 PM EDT Pulse 80 12/19/2024 12:41 PM EDT Temperature 36.1 C (97 F) 12/19/2024 12:41 PM EDT Respiratory Rate 16 12/19/2024 12:41 PM EDT Oxygen Saturation 93% 12/19/2024 12:41 PM EDT Inhaled Oxygen Concentration - - Weight 91.2 kg (201 lb) 12/19/2024 12:41 PM EDT Height 172.7 cm (5' 8 ) 12/19/2024 12:41 PM EDT Body Mass Index 30.56 12/19/2024 12:41 PM EDT Plan of Treatment Upcoming Encounters Date Type Department Care Team (Late st Contact Info) Description 03/06/2025 11:00 AM EST Ancillary Procedure [facility] [address] [place] [address] 07/11/2025 8:30 AM EDT Office Visit Adult Medicine [facility] [address] [place] [address] Abel Callahan MD [address] [place] [phone] Health Maintenance Due Date Last Done Comments Zoster Vaccines (1 of 2) 1981 RSV Immunization Adult Patients (1 - Risk 50-74 years 1-dose series) 02/03/2012 HIV Screening 08/17/2020 Lung Cancer Screening (Low Dose CT) 08/17/2020 Social Influencers of Health Screening 08/17/2020 Depression Screening 04/11/2024 COVID-19 Vaccine ( season) 2024 03/06/2021, 07/22/2020, 07/01/2020 Colorectal Cancer Screening: Colonoscopy 08/23/2025 08/24/2023, 04/12/2019 Cholesterol Screening (Lipid Panel) 12/24/2029 12/24/2024, 04/27/2024, 10/26/2023, Additional history exists DTaP,Tdap,and Td Vaccines (3 - Td or Tdap) 10/19/2034 10/19/2024, 05/01/2012 Hepatitis C Screening Completed 04/01/2016, 016 Influenza Vaccine Completed 12/04/2024, , 01/29/2023, Additional history exists Pneumococcal Vaccine: 50+ Years Completed 12/04/2024 HIB Vaccines Aged Out No longer eligi [...] Name Priority Date/Time Associated Diagnosis Comments XR KNEE 4+ VIEWS BILAT Routine 12/24/2024 8:32 AM EDT Chronic pain of both knees LIPID PANEL WITH REFLEX TO DIRECT LDL Routine 12/24/2024 8:11 AM EDT Hypercholesterolemia HEMOGLOBIN A1C Routine 12/24/2024 8:11 AM EDT Prediabetes CARDIAC HOLTER MONITOR (REPORT GENERATED IN HOUSE) Routine 11/29/2024 7:33 AM EDT Pulse irregularity HM COLONOSCOPY Routine 08/24/2023 HEPATITIS C SCREENING Routine 04/01/2016 from Last 3 Months or Most Recently Relevant to Health Maintenance Results * XR Knee 4+ Views bilat (12/24/2024 8:32 AM EDT) Anatomical Region Laterality Modality Lower Extremities, Knee Bilateral Radiogra [facility] 12/24/2024 11:1 8 PM EDT Narrative 12/24/2024 11:18 PM EDT Bilateral knees, 4 views of each. History pain. There is no evidence of fractures, dislocations or joint effusion. Alignment is maintained. CONCLUSIONS: Unremarkable radiographs of the knees. -------- FINAL REPORT -------- Dictated By: Tanna Villegas Dictated Date: 12/24/2024 23:18 ET Assigned Physician: Tanna Villegas Reviewed and Electronically Signed By: Tanna Villegas Signed Date: 12/24/2024 23:18 ET Workstation ID: [id number] Transcribed By: Self Edit Transcribed Date: 12/24/2024 23:18 ET Procedure Note Tanna Villegas MD - 12/24/2024 Bilateral knees, 4 views of each. History pain. There is no evidence of fractures, dislocations or joint effusion.Alignment is maintained. CONCLUSIONS: Unremarkable radiographs of the knees. -------- FINAL REPORT -------- Dictated By: Tanna Villegas Dictated Date: 12/24/2024 23:18 ET Assigned Physician: Tanna Villegas Reviewed and Electronically Signed By: Tanna Villegas Signed Date: 12/24/2024 23:18 ET Workstation ID: [id number] Transcribed By: Self Edit Transcribed Date: 12/24/2024 23:18 ET Mario Alberto CLARK IMG XR PROCEDURES Final Result * (ABNORMAL) Lipid panel with reflex to direct LDL (12/24/2024 8:11 AM EDT) Cholesterol 179 0 - 200 mg/dL LAB CHEMISTRY METHOD 12/24/2024 10:50 AM EDT [facility] Triglycerides 251(H) 0 - 150 mg/dL LAB CHEMISTRY METHOD 12/24/2024 10:50 AM T [facility] HDL 35(L) >=40 mg/dL LAB CHEMISTRY METHOD 12/24/2024 10:50 AM EDT [facility] LDL Calculated 94 0 - 100 mg/dL LAB CHEMISTRY METHOD 12/24/2024 10:50 AM EDT [facility] Comment:Estimated LDL Calcul ated using equation: Total cholesterol - HDL cholesterol - (Triglycerides/5) VLDL Cholesterol Chapo 50.2 mg/dL LAB CHEMISTRY METHOD 12/24/2024 10:50 AM EDT [facility] Non HDL Chol. (LDL+VLDL) 144 <145 mg/dL LAB CHEMISTRY METHOD 12/24/2024 10:50 AM EDT [facility] Chol/HDL Ratio 5.1(H) 0.0 - 4.4 LAB CHEMISTRY METHOD 12/24/2024 10:50 AM EDT [facility] Blood Venous blood specimen / Unknown Venipuncture / Unknown 12/24/2024 8:11 AM EDT 12/24/2024 8:11 AM EDT [facility]OD ORDERABLES Fi nal Result Performing Organization Address [facility]/ZIP Co de Phone Number [facility] [address] [place] [address], [place] [phone] * Hemoglobin A1c (12/24/2024 8:11 AM EDT) Hemoglobin A1C 6.4 <6.5 % LAB CHEMISTRY METHOD 12/24/2024 11:26 AM EDT [facility] Mean Bld Glu Estim. 137 mg/dL LAB CHEMISTRY METHOD 12/24/2024 11:26 AM EDT [facility] Blood Venous blood specimen / Unknown Venipuncture / Unknown 12/24/2024 8:11 AM EDT 12/24/2024 8:11 AM EDT [facility] BLOOD ORDERABLES Fi nal Result Performing Organization Address City/[facility]/ZIP Co de Phone Number [facility] [address] [place] [address], [place] [phone] * CARDIAC HOLTER MONITOR (REPORT GENERATED IN HOUSE) (11/29/2024 7:33 AM EDT) Anatomical Region Laterality Modality Cardiac Diagnost ic Narrative 12/03/2024 1:16 PM EDT [facility] DIAGNOSTIC TESTING DEPARTMENT [address] [place] [phone] TEL: FAX: Type of Test: 24 Hour Holter Monitor Date of Test: 11/29/2024 Ordering Provider: EDUARDO Blanco Reason for Test: Pulse irregularity [facility] Infant Babysitter Findings: 1: Normal Sinus Rhythm. 2: Frequent PACs and atrial bi/trigeminy. Rare atrial pairs. SVE [place] was 23.4%. 3: Frequent PVCs. Rare ventricular trigeminy, couplets, and one triplet. PVC [place] was 1.9%. 4: No significant pause noted, longest R-R was 1.7 seconds at 12:12 AM. 5: Diary returned with no symptoms noted. Impression: Normal sinus rhythm with frequent PACs and PVCs. There was a 23.4% PAC burden and 1.9% PVC burden. No sustained atrial or ventricular arrhythmias and no bradycardia or pauses. Noemi CLARK CV CARDIAC SERVICES PROCEDURES F inal Result * Colonoscopy (08/24/2023) [facility]ologist [facility] Colonoscopy no interpretation , abstracted Anatomical Region Laterality Modality Other Historical Provider HEALTH MAINTENANCE Final Result * Hepatitis C Screening (04/01/2016) [facility] Hepatitis C Screening ABSTRACTED Historical Provider HEALTH MAINTENANCE Final Result from Last 3 Months or Most Recently Relevant to Health Maintenance Insurance [facility] Care Teams Transverse Abdominal Muscle Nurse Relationship Specialty Start Date End Date Abel Callahan MD [address] [place] [address] [facility] - General 08/11/05
== END 2025-02-18 10:04 | disposition home or self-care (01) ==
LOC: HO.HSM 09:52
PROVIDERS: PCP Internal Medicine; Visit Provider Psychiatry & Neurology Neurology
DX: G61.81 Chronic inflammatory demyelinating polyneuritis (principal); G11.9 Hereditary ataxia, unspecified; R26.89 Other abnormalities of gait and mobility
CPT/HCPCS: 99213